=== PATIENT | female | born 1975 | race Caucasian/White ===

== ENCOUNTER 2016-12-14 12:54 | Emergency (ER) | payer SELFPAY ==
--- NOTE | 2016-12-14 13:00 | ER Document Report ---
ED Medical Screen (RME) - General Stated Complaint: SINUS PAIN,COUGH,CONGESTION Time seen by provider: 12:58 Mode of Arrival: Ambulatory Information source: Patient Notes: Cough congestion runny nose for 3 months. She states she is coughing up the nasty stuff sometimes pink. Last menstrual period 11/23/2016. I have greeted and performed a rapid initial assessment of this patient. A comprehensive ED assessment and evaluation of the patient, analysis of test results and completion of medical decision making process will be conducted by an additional ED providers. TRAVEL OUTSIDE OF THE [place] IN LAST 30 DAYS: No - Related Data Allergies/Adverse Reactions: No Known Allergies Allergy (Verified 12/14/16 12:57) Past Medical History Psychiatric Medical History: Reports: Hx Attention Deficit Hyperactivity Disorder, Hx Bipolar Disorder Past Surgical History: Reports: Hx Tonsillectomy - Immunizations Immunizations up to date: Yes Hx Diphtheria, Pertussis, Tetanus Vaccination: Yes
--- NOTE | 2016-12-14 14:03 | ER Document Report ---
ED Respiratory Problem - General Chief Complaint: Sinus Pain Stated Complaint: SINUS PAIN,COUGH,CONGESTION Mode of Arrival: Ambulatory Information source: Patient Notes: 41 y/o F presents to ED c/o persistent cough over the last 3 weeks. Reports onset of cough and congestion approximately 3 weeks ago. States initially had chills which have resolved but cough has persisted. States cough is productive with greenish yellow sputum and seems to be worse at night. Reports associated substernal pain and sob with coughing bouts. Denies n/v, hemoptysis, chest pain or sob without cough. TRAVEL OUTSIDE OF THE [place] IN LAST 30 DAYS: No - HPI Patient complains to provider of: Cough Duration: Worse/persistent Initiating Event: URI Quality of pain: Achy Severity: Mild Pain Level: 1 Context: Smoker Short of Breath: Mild Chest pain/discomfort: Center Cough: Productive Sputum amount: Scant Sputum color: Green Similar symptoms previously: Yes Recently seen / treated by doctor: No - Related Data Allergies/Adverse Reactions: No Known Allergies Allergy (Verified 12/14/16 12:57) Past Medical History - General Information source: Patient - Social History Smoking Status: Current Every Day Smoker Cigarette use (# per day): Yes - 1/2 pack per day Chew tobacco use (# tins/day): No Frequency of alcohol use: daily Drug Abuse: None Lives with: Family Family History: Reviewed & Not Pertinent Patient has suicidal ideation: No Patient has homicidal ideation: No Renal/ Medical History: Denies: Hx Peritoneal Dialysis Psychiatric Medical History: Reports: Hx Attention Deficit Hyperactivity Disorder, Hx Bipolar Disorder Past Surgical History: Reports: Hx Tonsillectomy - Immunizations Immunizations up to date: Yes Hx Diphtheria, Pertussis, Tetanus Vaccination: Yes Review of Systems - Review of Systems Constitutional: See HPI EENT: See HPI Cardiovascular: No symptoms reported Respiratory: See HPI Gastrointestinal: No symptoms reported Genitourinary: No symptoms reported Female Genitourinary: No symptoms reported Musculoskeletal: No symptoms reported Skin: No symptoms reported Hematologic/Lymphatic: No symptoms reported Neurological/Psychological: No symptoms reported -: Yes All other systems reviewed and negative Physical Exam - Vital signs Vitals: Pulse Resp BP Pulse Ox 87 20 119/82 96 12/14/16 12:58 12/14/16 12:58 12/14/16 12:58 12/14/16 12:58 Interpretation: Normal - General General appearance: Appears well, Alert - HEENT Head: Normocephalic, Atraumatic Eyes: Normal Pupils: PERRL - Respiratory Respiratory status: No respiratory distress Chest status: Nontender, Pain with cough. No: Prolonged expirations Breath sounds: Normal - CTAB, Productive cough Chest palpation: Normal - Cardiovascular Rhythm: Regular Heart sounds: Normal auscultation Murmur: No Pulses: Normal: Radial Normal capillary refill: Yes - Abdominal Inspection: Normal Distension: No distension Bowel sounds: Normal Tenderness: Nontender Organomegaly: No organomegaly - Back Back: Normal, Nontender - Extremities General upper extremity: Normal inspection, Nontender, Normal color, Normal ROM , Normal strength, Normal temperature. No: Tender, Edema General lower extremity: Normal inspection, Nontender, Normal color, Normal ROM , Normal strength, Normal temperature, Normal weight bearing. No: Tender, Edema , Grace's sign - Neurological Neuro grossly intact: Yes Cognition: Normal Orientation: AAOx4 [place] Coma Scale Eye Opening: Spontaneous [place]ky Coma Scale Verbal: Oriented [place] Coma Scale Motor: Obeys Commands Nikky Coma Scale Total: 15 Speech: Normal Motor strength normal: LUE, RUE, LLE, RLE Sensory: Normal - Psychological Associated symptoms: Normal affect, Normal mood - Skin Skin Temperature: Warm Skin Moisture: Dry Skin Color: Normal Course - Re-evaluation Re-evalutation: 12/14/16 14:10 Pt hemodynamically stable, in no distress, afebrile. Chest xray unremarkable. No suggestion of emergent infectious, pulmonary, or cardiovascular etiology at this time. Will treat for likely uncomplicated bronchitis at this time. Pt appears stable for discharge and agrees with home care, follow-up with pcp, and ED return precautions. - Vital Signs Vital signs: Temp Pulse Resp BP Pulse Ox 97.8 F 91 20 110/67 96 12/14/16 14:43 12/14/16 14:43 12/14/16 12:58 12/14/16 14:43 12/14/16 14:43 - Diagnostic Test Radiology reviewed: Image reviewed, Reports reviewed Discharge - Discharge Clinical Impression: Bronchitis Condition: Stable Disposition: HOME, SELF-CARE Additional Instructions: BRONCHITIS: You have acute bronchitis. This disease is an infection or inflammation of the air passageways in your lungs. Symptoms usually include cough, low grade fever, shortness of breath, and wheezing. The cough usually persists for a couple of weeks. Most cases of bronchitis get better without antibiotics. We prescribe antibiotics when we believe bacteria are damaging your airways, or if there's high risk the bronchitis will worsen into pneumonia. Increase your fluid intake. A cool mist humidifier may make your lungs more comfortable. An expectorant (cough medicine that loosens phlegm) can help. If you smoke, STOP!!! Recovery from bronchitis can be somewhat slow, but you should see improvement within a day or two. Repeated episodes of bronchitis may result in lung damage -- for example, chronic bronchitis, recurrent pneumonias, or emphysema. Call the doctor if you develop increasing fever, shortness of breath, chest pain, bloody sputum, or otherwise worsen. If you have not improved at all after several days, contact the physician. DECONGESTANT MEDICATION: A decongestant medicine has been prescribed. Often this medicine is combined in the same tablet with an antihistamine or expectorant. This type of medicine is helpful in treating a bad cold or sinus condition, as well as in treatment of the nasal congestion of hay fever. It is not of much benefit for lung infections. Decongestant medicines are related to stimulants. They can cause an increase in blood pressure and heart rate. Persons with heart disease and high blood pressure should not take decongestants without discussing this with the physician. If you develop palpitations, chest pain, headache, or tremors, stop the medicine and consult your physician. COUGH-SUPPRESSANT & EXPECTORANT MEDICATION: You are to use a cough medication as needed for relief of symptoms. This medicine is a combination of an expectorant (to make the mucous thinner and more easily "coughed up") and a cough suppressant (to reduce the frequency of coughing). The cough-suppressant medicine is related to narcotics. You may experience mild nausea and sleepiness. Some patients who are very sensitive to narcotics may have stomach pain from this medicine. Taking the medicine with food reduces these side effects. Do not drive or work with machinery until you know how this medicine affects you. The expectorant should have no side effects. Iodine-containing expectorants (such as organidin) should not be taken by persons with active thyroid disease unless approved by your doctor. Call the doctor if you develop shortness of breath, hives, rash, itching, lightheadedness, or severe nausea and vomiting. INHALED BRONCHODILATORS: You have received a treatment of and/or prescription for an inhaled bronchodilator -- a medication which stimulates the airways in the lung to dilate. This improves the flow of air in asthma, bronchitis, and emphysema. These medicines have some similarity to adrenaline, and can cause similar side effects: shakiness, racing heart, and a sense of nervousness. These side effects decrease with time. Contact your doctor if these side effects are severe. Do not over-use the medicine. Too-frequent use of the inhaler may make it ineffective. Call your doctor if the inhaler is not controlling your symptoms at the prescribed doses. STEROID MEDICATION: You have been given an injection of or oral medicine of the cortisone/ steroid class. This medication is used to control inflammation or allergy. [place] t is usually only given for a short period of time, until the acute process subsides. There are usually no side effects from short-term use of cortisone-like medications. Some persons feel an increased sense of well-being and are not sleepy at bedtime. Long-term use of cortisone medications is best avoided, unless required for a severe condition. If your condition does not remit, or relapses after the course of corticosteroid medication, you should consult your physician. ANTIBIOTIC THERAPY: You have been given an antibiotic prescription. It's important that you take all the medication, unless instructed otherwise by your physician. Failure to complete the entire course can result in relapse of your condition. Common side effects of antibiotics include nausea, intestinal cramping, or diarrhea. Women may develop vaginal yeast infections, and babies can get yeast (thrush) in the mouth following the use of antibiotics. Contact your physician if you develop significant side effects from this medication. Allergy to this antibiotic can result in hives, wheezing, faintness, or itching. If symptoms of allergy occur, stop the medication and call your doctor. AZITHROMYCIN: Azithromycin (Zithromax) is a broad spectrum antibiotic in the same class as erythromycin. It can treat a variety of bacterial infections, but is most frequently used for respiratory infections. Azithromycin is extremely long-lasting. It accumulates in body tissues and continues to kill bacteria for many days. In order to improve absorption, Azithromycin should be taken at least one hour before or two hours after a meal. It does not have the same strong tendency to upset the stomach as erythromycin and is usually very well tolerated. Patients who have had a rash or other true allergic reactions to erythromycin should not take this medication. Call if you develop gastrointestinal distress, severe diarrhea, rash, hives, itching, or shortness of breath. USE OF ACETAMINOPHEN (Tylenol): Acetaminophen may be taken for pain relief or fever control. It's much safer than aspirin, offering a wider range of "safe" dosages. It is safe during . Some brand names are Tylenol, Panadol, Datril, Anacin 3, Tempra, and Liquiprin. Acetaminophen can be repeated every four hours. The following are maximum recommended dosages: >89 pounds or adults 650 mg to 900 mg Acetaminophen can be repeated every four hours. Maximum dose not to exceed 4000 mg a day. SMOKING: If you smoke, you should stop smoking. The tar and chemicals in cigarette smoke are harmful. Smoking has been shown to cause: emphysema chronic bronchitis lung cancer mouth and throat cancer stomach and pancreas cancer premature aging defects In addition, smoking increases ear and lung infections in children of smokers. FOLLOW-UP CARE: Drink plenty of fluids. Follow-up with your primary care provider this week. Return to the Emergency Department for any worsening symptoms or concerns. Prescriptions: Guaifenesin/D-Methorphan Hb [Guaifenesin-Dextromethorph Tab] 1 each PO Q12HP PRN #8 tab.sr.12h PRN Reason: Cough Albuterol Sulfate [Proair HFA Inhalation Aerosol 8.5 gm MDI] 2 puff IH Q4H PRN # 1 mdi PRN Reason: Azithromycin [Zithromax 250 mg Tablet] 250 mg PO ASDIR PRN #6 tablet PRN Reason: Prednisone [Deltasone 10 mg Tablet] 10 mg PO ASDIR PRN #21 tablet PRN Reason: Forms: Smoking Cessation Education
[2016-12-14 14:57] VITALS: BP 110/67
== END 2016-12-14 14:44 | disposition home or self-care (01) ==
LOC: ER 12:54
DX: J40 Bronchitis, not specified as acute or chronic (principal); R05 Cough; R07.89 Other chest pain; R06.02 Shortness of breath; F17.210 Nicotine dependence, cigarettes, uncomplicated
CPT/HCPCS: 71020; 99283

== ENCOUNTER 2017-09-14 10:19 | Emergency (ER) | payer SELFPAY ==
--- NOTE | 2017-09-14 11:08 | ER Document Report ---
ED Skin Rash/Insect Bite/Abscs - General Chief Complaint: Cold Symptoms Stated Complaint: SORE THROAT CONGESTION Time Seen by Provider: 09/14/17 11:02 Mode of Arrival: Ambulatory Notes: 42-year-old female presents to ED for complaint of cough cold congestion sore throat runny nose with blisters in her nose from blowing her nose so much. TRAVEL OUTSIDE OF THE [place] IN LAST 30 DAYS: No - HPI Patient complains to provider of: Other - Cough cold congestion for over a week with blisters to the inside of bilateral nostrils Onset: Last week Onset/Duration: Gradual, Worse Quality of pain: Achy, Burning Severity: Moderate Pain Level: 3 Skin Character: Other - Blisters/ulcers to the inside of both nares, she also has runny nose cough congestion postnasal drip lungs are clear Identify cause: No Exacerbated by: Denies Relieved by: Denies Similar symptoms previously: Yes Recently seen / treated by doctor: Yes - Related Data Allergies/Adverse Reactions: No Known Allergies Allergy (Verified 12/14/16 12:57) Past Medical History - General Information source: Patient - Social History Smoking Status: Current Every Day Smoker Cigarette use (# per day): Yes - Pack per day Chew tobacco use (# tins/day): No Smoking Education Provided: Yes - Less than 2 minutes Frequency of alcohol use: Social - 3 times a week Drug Abuse: None 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 denies: CAD , DM, Malignancy, Thyroid Disfunction Patient has suicidal ideation: No Patient has homicidal ideation: No - Past Medical History Cardiac Medical History: Reports: None Pulmonary Medical History: Reports: Hx Pneumonia EENT Medical History: Reports: None Neurological Medical History: Reports: Hx Migraine Endocrine Medical History: Reports: None Renal/ Medical History: Reports: None Malignancy Medical History: Reports: None GI Medical History: Reports: Hx Irritable Bowel Musculoskeltal Medical History: Reports None Skin Medical History: Reports None Psychiatric Medical History: Reports: Hx Anxiety, Hx Attention Deficit Hyperactivity Disorder, Hx Bipolar Disorder, Hx Depression Traumatic Medical History: Reports: None Past Surgical History: Reports: Hx Adenoidectomy, Hx Myringotomy, Hx Oral Surgery - [place] teeth, Hx Tonsillectomy - Immunizations Immunizations up to date: Yes Hx Diphtheria, Pertussis, Tetanus Vaccination: Yes Review of Systems - Review of Systems Constitutional: Chills, Fever, Recent illness EENT: Nose congestion, Nose discharge, Sinus discharge, Throat pain Cardiovascular: No symptoms reported Respiratory: Cough. denies: Wheezing Gastrointestinal: No symptoms reported Genitourinary: No symptoms reported Female Genitourinary: No symptoms reported Musculoskeletal: No symptoms reported Skin: No symptoms reported Hematologic/Lymphatic: No symptoms reported Neurological/Psychological: No symptoms reported -: Yes All other systems reviewed and negative Physical Exam - Vital signs Vitals: Temp Pulse Resp BP Pulse Ox 98.4 F 71 16 134/87 H 99 09/14/17 10:28 09/14/17 10:28 09/14/17 10:28 09/14/17 10:28 09/14/17 10:28 Interpretation: Normal - General General appearance: Appears well, Alert - HEENT Head: Normocephalic, Atraumatic Eyes: Normal Pupils: PERRL Ears: Normal External canal: Normal Tympanic membrane: Normal Sinus: Normal Nasal: Purulent discharge, Swelling, Other - Draining ulcers to the bilateral nostrils from blowing her nose so much she states Mouth/Lips: Normal Mucous membranes: Normal Pharynx: Post nasal drainage. No: Erythema, Exudate, Peritonsillar abscess, Retropharyngeal abscess, Tonsillar hypertrophy, Potential airway comprom. Neck: Anterior cervical chain - Respiratory Respiratory status: No respiratory distress Chest status: Nontender Breath sounds: Nonproductive cough. No: Productive cough, Rales, Rhonchi, Stridor, Wheezing Chest palpation: Normal - Cardiovascular Rhythm: Regular Heart sounds: Normal auscultation Murmur: No - Abdominal Inspection: Normal Distension: No distension Bowel sounds: Normal Tenderness: Nontender Organomegaly: No organomegaly - Back Back: Normal, Nontender - Extremities General upper extremity: Normal inspection, Nontender, Normal color, Normal ROM , Normal temperature General lower extremity: Normal inspection, Nontender, Normal color, Normal ROM , Normal temperature, Normal weight bearing. No: Grace's sign - Neurological Neuro grossly intact: Yes Cognition: Normal Orientation: AAOx4 [place] Coma Scale Eye Opening: Spontaneous Nikky Coma Scale Verbal: Oriented [place] Coma Scale Motor: Obeys Commands Nikky Coma Scale Total: 15 Speech: Normal Motor strength normal: LUE, RUE, LLE, RLE Sensory: Normal - Psychological Associated symptoms: Normal affect, Normal mood - Skin Skin Temperature: Warm Skin Moisture: Dry Skin Color: Normal Course - Re-evaluation Re-evalutation: 09/14/17 11:08 Assessment consistent with an upper respiratory infection with blisters in her nose from blowing her nose so much. Will treat with Claritin and Sudafed Mucinex and ibuprofen and Bactroban to her nose. Patient will be discharged home to follow-up with her primary doctor. - Vital Signs Vital signs: Temp Pulse Resp BP Pulse Ox 98.4 F 71 16 134/87 H 99 09/14/17 10:28 09/14/17 10:28 09/14/17 10:28 09/14/17 10:28 09/14/17 10:28 Discharge - Discharge Clinical Impression: Sores in her nose Upper respiratory infection Qualifiers: URI type: unspecified URI Qualified Code(s): J06.9 - Acute upper respiratory infection, unspecified Condition: Stable Disposition: HOME, SELF-CARE Instructions: Family Physicians / Practices Additional Instructions: UPPER RESPIRATORY ILLNESS: You have a viral infection of the respiratory passages -- a "cold." This common infection causes nasal congestion, drainage, and often sore throat and cough. It is highly contagious. The disease usually lasts about 10 to 14 days. There is no "cure" for the viral infection -- it must run its course. If there is a complication, such as bacterial infection in the nose, sinuses, middle ear, or bronchial tubes, antibiotics may be required. The antibiotics won't affect the virus. Drink plenty of fluids. A humidifier may help. An expectorant medication or decongestant may make you more comfortable. Use acetaminophen or ibuprofen for fever or aches. See the doctor if fever persists over two days, if there is any significant worsening of your symptoms, or if you simply fail to improve as expected. Bactroban Ointment Bactroban is very effective against the germs that cause infection within the skin. It's useful for impetigo and other superficial infections. Deeper infections require antibiotics by mouth or by shot. Apply the medicine three times a day for one week, or longer if your doctor has advised it. Stop the medicine and call your doctor if you develop large blisters, severe itching, increasing pain, swelling, fever, or spreading redness. DECONGESTANT MEDICATION: A decongestant medicine has been prescribed. Often this medicine is combined in the same tablet with an antihistamine or expectorant. This type of medicine is helpful in treating a bad cold or sinus condition, as well as in treatment of the nasal congestion of hay fever. It is not of much benefit for lung infections. Decongestant medicines are related to stimulants. They can cause an increase in blood pressure and heart rate. Persons with heart disease and high blood pressure should not take decongestants without discussing this with the physician. If you develop palpitations, chest pain, headache, or tremors, stop the medicine and consult your physician. COUGH-SUPPRESSANT & EXPECTORANT MEDICATION: You are to use a cough medication as needed for relief of symptoms. This medicine is a combination of an expectorant (to make the mucous thinner and more easily "coughed up") and a cough suppressant (to reduce the frequency of coughing). The cough-suppressant medicine is related to narcotics. You may experience mild nausea and sleepiness. Some patients who are very sensitive to narcotics may have stomach pain from this medicine. Taking the medicine with food reduces these side effects. Do not drive or work with machinery until you know how this medicine affects you. The expectorant should have no side effects. Iodine-containing expectorants (such as organidin) should not be taken by persons with active thyroid disease unless approved by your doctor. Call the doctor if you develop shortness of breath, hives, rash, itching, lightheadedness, or severe nausea and vomiting. USE OF ACETAMINOPHEN (Tylenol): Acetaminophen may be taken for pain relief or fever control. It's much safer than aspirin, offering a wider range of "safe" dosages. It is safe during . Some brand names are Tylenol, Panadol, Datril, Anacin 3, Tempra, and Liquiprin. Acetaminophen can be repeated every four hours. The following are maximum recommended dosages: >89 pounds or adults 650 mg to 900 mg Acetaminophen can be repeated every four hours. Maximum dose not to exceed 4000 mg a day. SMOKING: If you smoke, you should stop smoking. The tar and chemicals in cigarette smoke are harmful. Smoking has been shown to cause: emphysema chronic bronchitis lung cancer mouth and throat cancer stomach and pancreas cancer premature aging defects In addition, smoking increases ear and lung infections in children of smokers. FOLLOW-UP CARE: If you have been referred to a physician for follow-up care, call the physician s office for an appointment as you were instructed or within the next two days. If you experience worsening or a significant change in your symptoms, notify the physician immediately or return to the Emergency Department at any time for re-evaluation. Forms: Return to Work
[2017-09-14] MEDS ORDERED: LORATADINE 10 MG TABLET PO ONE (11:20)
[2017-09-14] MEDS ORDERED: GUAIFENESIN 600 MG TABLET.SA PO ONE (11:20)
[2017-09-14] MEDS ORDERED: MUPIROCIN 2% OINTMENT 22 GM TP ONE (11:20)
[2017-09-14] MEDS ORDERED: PSEUDOEPHEDRINE HCL 30 MG TABLET PO ONE (11:20)
[2017-09-14] MEDS ORDERED: IBUPROFEN 600 MG TABLET PO ONE (11:20)
[2017-09-14 11:56] VITALS: BP 123/91
== END 2017-09-14 11:50 | disposition home or self-care (01) ==
LOC: ER 10:19
DX: J06.9 Acute upper respiratory infection, unspecified (principal); L98.9 Disorder of the skin and subcutaneous tissue, unspecified; J02.9 Acute pharyngitis, unspecified; R09.81 Nasal congestion; R05 Cough; R09.89 Other specified symptoms and signs involving the circulatory and respiratory systems; F17.210 Nicotine dependence, cigarettes, uncomplicated
CPT/HCPCS: 99283; J3490

== ENCOUNTER 2017-09-15 22:52 | Emergency (ER) | payer SELFPAY ==
[2017-09-15 23:11] VITALS: BP 134/119
[2017-09-15] MEDS ORDERED: DEXAMETHASONE SOD PHOS INJ 10 MG/1 ML VIAL IM ONE (23:35)
--- NOTE | 2017-09-15 23:41 | ER Document Report ---
HPI - HPI Pain Level: 5 Notes: Patient is a 42-year-old female who presents to the ED complaining of nasal congestion/discharge, sinus pain and pressure, sinus Box's, postnasal drip, bilateral ear pain 4 weeks. Patient states that she has been using over-the- counter meds with no relief and was evaluated yesterday was given the same medications that she had been using [id number] that have not been working. Patient states that her congestion does continue to get worse. Patient states that she has had an intermittent sore throat from postnasal drip. Patient has also had a dry semi-productive cough 2 weeks. Patient does admit to smoking but denies IV drug use. Patient states that she is still able to eat and drink, but does have a decreased appetite. She still urinating normally and having normal bowel movements. Denies any fever, neck pain, chest pain, palpitations, syncope, shortness of breath, wheeze, dyspnea, abdominal pain, nausea/vomiting/diarrhea, dysuria, hematuria, or rash. - ROS Notes: REVIEW OF SYSTEMS: CONSTITUTIONAL : see hpi. EENT: see hpi. CARDIOVASCULAR: Denies chest pain. Denies palpitations or racing or irregular heart beat. Denies ankle edema. RESPIRATORY: see hpi. Denies shortness of breath, difficulty breathing, or wheezing. GASTROINTESTINAL: Denies abdominal pain or distention. Denies nausea, vomiting , or diarrhea. GENITOURINARY: Denies difficulty urinating, painful urination, burning, frequency, blood in urine, or discharge. MUSCULOSKELETAL: Denies back or neck pain or stiffness. Denies joint pain or swelling. SKIN: Denies rash, lesions or sores. NEUROLOGICAL: Denies confusion or altered mental status. Denies passing out or loss of consciousness. Denies dizziness or lightheadedness. Denies headache. Denies weakness or paralysis or loss of use of either side. Denies problems with gait or speech. Denies sensory loss, numbness, or tingling. ALL OTHER SYSTEMS REVIEWED AND NEGATIVE. Dictation was performed using [employer] voice recognition software - EENT EENT: REPORTS: Sore Throat - x1 day - REPRODUCTIVE Reproductive: DENIES: : Past Medical History - Social History Smoking Status: Current Every Day Smoker Family History: Arthritis, COPD, CVA, Hyperlipidemia, Hypertension. denies: CAD , DM, Malignancy, Thyroid Disfunction Patient has suicidal ideation: No Patient has homicidal ideation: No Pulmonary Medical History: Reports: Hx Pneumonia Neurological Medical History: Reports: Hx Migraine Renal/ Medical History: Denies: Hx Peritoneal Dialysis GI Medical History: Reports: Hx Irritable Bowel Psychiatric Medical History: Reports: Hx Anxiety, Hx Attention Deficit Hyperactivity Disorder, Hx Bipolar Disorder, Hx Depression Past Surgical History: Reports: Hx Adenoidectomy, Hx Myringotomy, Hx Oral Surgery - [place] teeth, Hx Tonsillectomy - Immunizations Immunizations up to date: Yes Hx Diphtheria, Pertussis, Tetanus Vaccination: Yes Vertical Provider Document - CONSTITUTIONAL Agree With Documented VS: Yes Notes: PHYSICAL EXAMINATION: GENERAL: Well-appearing, well-nourished and in no acute distress. A&ox4 HEAD: Atraumatic, normocephalic. EYES: Pupils equal round and reactive to light, extraocular movements intact, sclera anicteric, conjunctiva are normal. ENT: EAC clear b/l. TM's intact b/l without erythema, fluid, or perforation. Nares erythemic, mildly inflamed and with yellow discharge. oropharynx mild erythema without exudates. + PND noted. 2+ tonsilar hypertrophy without exudate. No palatine shift. Uvula midline. No tongue protrusion. Moist mucous membranes. No sinus tenderness. No hoarseness/drooling. + sinus maxillary sinus tenderness and + illumination test. NECK: Normal range of motion, supple without lymphadenopathy. No rigidity/ meningismus. LUNGS: scant expiratory wheezes b/l. No crackles, retraction, or distress. HEART: Regular rate and rhythm without murmurs, rubs, gallops. ABDOMEN: Soft, nontender, nondistended abdomen. No guarding, no rebound. No masses appreciated. Normal bowel sounds present. No CVA tenderness bilaterally. No hepatosplenomegaly. NEUROLOGICAL: Normal speech, normal gait. Normal sensory, motor exams PSYCH: Normal mood, normal affect. SKIN: Warm, Dry, normal turgor, no rashes or lesions noted. - INFECTION CONTROL TRAVEL OUTSIDE OF THE [place] IN LAST 30 DAYS: No - RESPIRATORY O2 Sat by Pulse Oximetry: 96 Course - Re-evaluation Re-evalutation: 09/15/17 23:40 Patient is an afebrile, well-hydrated, 42-year-old female who presents the ED with acute sinusitis and URI. Vitals are stable. PE is otherwise unremarkable. Patient has been having ongoing symptoms for reportedly 4 weeks that have not been improving despite conservative measures. I will send her home with a prescription for Augmentin to take as directed. No other imaging or lab testing warranted at this time. Decadron given IM today as well. Low suspicion for any meningitis, sepsis, peritonsillar/pharyngeal abscess, respiratory compromise, Ronal's, or other emergent systemic condition at this time. Patient is aware this condition can change from initial presentation and she needs to monitor symptoms closely. Conservative measures otherwise for symptoms. Recheck with your PCM in 3-5 days. Return to the ED with any worsening/concerning symptoms otherwise as reviewed in discharge. Patient is in agreement. - Vital Signs Vital signs: Temp Pulse Resp BP Pulse Ox 98.9 F 109 H 16 134/119 H 96 09/15/17 23:10 09/15/17 23:10 09/15/17 23:10 09/15/17 23:10 09/15/17 23:10 Discharge - Discharge Clinical Impression: Acute URI Acute sinusitis Qualifiers: Sinusitis location: maxillary Recurrence: non-recurrent Qualified Code(s): J01.00 - Acute maxillary sinusitis, unspecified Condition: Stable Disposition: HOME, SELF-CARE Instructions: Sinusitis ([facility]), Upper Respiratory Illness ([facility]), Augmentin ([facility]) Additional Instructions: Maintain adequate fluid intake Take meds as directed tylenol/ibuprofen as needed over the counter cold medication as needed for symptoms Humidified air may help F/u: with your PCM in 3-5 days for a recheck Return to the ED with any fever, worsening pain, chest pain, palpitations, syncope, worsening BOX, neck pain/stiffness, shortness of breath, wheezing, drooling, trouble swallowing/breathing, abdominal pain, n/v/d, rash, or worsening/concerning symptoms otherwise. Prescriptions: Amox Tr/Potassium Clavulanate [Augmentin 875-125 Tablet] 1 tab PO BID #20 tablet Forms: Elevated Blood Pressure, Smoking Cessation Education Referrals: [facility] [Provider Group] - Follow up as needed [facility] [Provider Group] - Follow up as needed
== END 2017-09-16 00:15 | disposition home or self-care (01) ==
LOC: ER 22:52
DX: J06.9 Acute upper respiratory infection, unspecified (principal); J01.00 Acute maxillary sinusitis, unspecified; H92.03 Otalgia, bilateral; F17.200 Nicotine dependence, unspecified, uncomplicated
CPT/HCPCS: 99282; 96372; J1100

== ENCOUNTER 2018-04-24 10:05 | Emergency (ER) | payer SELFPAY ==
[2018-04-24 10:11] VITALS: BP 113/73
--- NOTE | 2018-04-24 10:19 | ER Document Report ---
HPI - HPI Patient complains to provider of: Cough and congestion Onset: Other - April 22 Onset/Duration: Sudden Pain Level: 5 Context: 42-year-old smoker female complaining of cough and congestion. Chills and sweats. Had a hard time breathing this morning. Does not have any bronchodilators. Associated Symptoms: None Exacerbated by: Other - Cough Relieved by: Denies - ROS ROS below otherwise negative: Yes Systems Reviewed and Negative: Yes All other systems reviewed and negative - REPRODUCTIVE Reproductive: DENIES: : Past Medical History - General Information source: Patient - Social History Smoking Status: Current Every Day Smoker Frequency of alcohol use: None Drug Abuse: None Lives with: Spouse/Significant other Family History: Arthritis, COPD, CVA, Hyperlipidemia, Hypertension Pulmonary Medical History: Reports: Hx Bronchitis, Hx Pneumonia Neurological Medical History: Reports: Hx Migraine Renal/ Medical History: Denies: Hx Peritoneal Dialysis GI Medical History: Reports: Hx Irritable Bowel Psychiatric Medical History: Reports: Hx Anxiety, Hx Attention Deficit Hyperactivity Disorder, Hx Bipolar Disorder, Hx Depression Past Surgical History: Reports: Hx Adenoidectomy, Hx Myringotomy, Hx Oral Surgery - [place] teeth, Hx Tonsillectomy - Immunizations Immunizations up to date: Yes Hx Diphtheria, Pertussis, Tetanus Vaccination: Yes Vertical Provider Document - CONSTITUTIONAL Agree With Documented VS: Yes Exam Limitations: No Limitations General Appearance: No Apparent Distress - INFECTION CONTROL TRAVEL OUTSIDE OF THE [place] IN LAST 30 DAYS: No - HEENT HEENT: Pharyngeal Erythema. negative: Conjuctival Injection, Tympanic Membrane Red - NECK Neck: Supple. negative: Lymphadenopathy-Left, Lymphadenopathy-Right - RESPIRATORY Respiratory: Rhonchi - Coarse bilateral, Wheezing - Coarse bilateral expiratory - CARDIOVASCULAR Cardiovascular: Regular Rate, Regular Rhythm - NEURO Level of Consciousness: Awake - DERM Integumentary: No Rash Course - Re-evaluation Re-evalutation: 04/24/18 11:00 Chest x-ray is negative per radiologist - Vital Signs Vital signs: Temp Pulse Resp BP Pulse Ox 97.8 F 95 20 113/73 04/24/18 10:09 04/24/18 10:09 04/24/18 10:04/24/18 10:09 Discharge - Discharge Clinical Impression: Bronchitis Condition: Good Disposition: HOME, SELF-CARE Instructions: Bronchitis ([facility]), Bronchodilators ([facility]), Stop Smoking ([facility]), Steroid Medication Additional Instructions: Plenty of fluids Stop smoking Use the inhaler Steroids for 4 more days If you are still sick in a week recheck where your symptoms get worse recheck The chest x-ray is negative for pneumonia today Prescriptions: Albuterol Sulfate [Proair HFA Inhalation Aerosol 8.5 gm MDI] 2 puff IH Q3HP PRN #1 [email or web address] PRN Reason: Prednisone [Deltasone 20 mg Tablet] 40 mg PO DAILY #8 tablet
[2018-04-24] MEDS ORDERED: IPRATROPIUM/ALBUTEROL 0.5-2.5 MG/3 ML AMPUL NEB ONE (10:21)
[2018-04-24] MEDS ORDERED: ALBUTEROL SULFATE 0.083% NEB 2.5 MG/3 ML AMPUL NEB ONE (10:21)
--- NOTE | 2018-04-24 10:58 | RADIOLOGY REPORT (SQ) ---
EXAM DESCRIPTION: CHEST 2 VIEWS COMPLETED DATE/TIME: 04/24/2018 10:34 am REASON FOR STUDY: Cough COMPARISON: Chest films 12/14/2016, 02/27/2015, 10/17/2009 EXAM PARAMETERS: NUMBER OF VIEWS: two views TECHNIQUE: Digital Frontal and Lateral radiographic views of the chest acquired. RADIATION DOSE: NA LIMITATIONS: none FINDINGS: LUNGS AND PLEURA: No opacities, masses or pneumothorax. No pleural effusion. MEDIASTINUM AND HILAR STRUCTURES: No masses or contour abnormalities. HEART AND VASCULAR STRUCTURES: Heart normal size. No evidence for failure. BONES: No acute findings. HARDWARE: None in the chest. OTHER: No other significant finding. IMPRESSION: NO ACUTE RADIOGRAPHIC FINDING IN THE CHEST. TECHNICAL DOCUMENTATION: JOB ID: [id number] [employer]- All Rights Reserved Reading location - IP/workstation name: [email or web address]
[2018-04-24] MEDS ORDERED: PREDNISONE 20 MG TABLET PO ONE (11:00)
== END 2018-04-24 11:23 | disposition home or self-care (01) ==
LOC: ER 10:05
DX: J40 Bronchitis, not specified as acute or chronic (principal); F17.200 Nicotine dependence, unspecified, uncomplicated
CPT/HCPCS: 94640 ×2; 99283; 71046; J7512; J7620

== ENCOUNTER 2019-05-06 06:49 | Emergency (ER) | payer SELFPAY ==
[2019-05-06 07:05] VITALS: BP 146/98
--- NOTE | 2019-05-06 15:02 | ER Document Report ---
Entered by JAYLEEN KUMAR SCRIBE 05/06/19 0830 Acting as scribe for:CATALINA BEY DO ED General - General Chief Complaint: Insect Bite Stated Complaint: RASH Time Seen by Provider: 05/06/19 08:11 Notes: Patient is a 43-year-old female presenting to the emergency department complaining of bug bites. Patient states that this is been going on for about 2 years. Patient states that she does have animals, she she has a rash from the bites. Patient states that she has taken permethrin before to help with the bites and it did help temporarily. She has seen field reporter for this in the past. States she was told to use lotion for dry skin. TRAVEL OUTSIDE OF THE [place] IN LAST 30 DAYS: No - Related Data Allergies/Adverse Reactions: No Known Allergies Allergy (Verified 04/24/18 10:06) Past Medical History - General Information source: Patient - Social History Smoking Status: Current Every Day Smoker Cigarette use (# per day): Yes Chew tobacco use (# tins/day): No Frequency of alcohol use: Occasional Drug Abuse: None Family History: Arthritis, COPD, CVA, Hyperlipidemia, Hypertension Pulmonary Medical History: Reports: Hx Bronchitis, Hx Pneumonia Neurological Medical History: Reports: Hx Migraine GI Medical History: Reports: Hx Irritable Bowel Psychiatric Medical History: Reports: Hx Anxiety, Hx Attention Deficit Hyperactivity Disorder, Hx Bipolar Disorder, Hx Depression Past Surgical History: Reports: Hx Adenoidectomy, Hx Myringotomy, Hx Oral Surgery - [place] teeth, Hx Tonsillectomy - Immunizations Immunizations up to date: Yes Hx Diphtheria, Pertussis, Tetanus Vaccination: Yes Review of Systems - Review of Systems Constitutional: No symptoms reported EENT: No symptoms reported Cardiovascular: No symptoms reported Respiratory: No symptoms reported Gastrointestinal: No symptoms reported Genitourinary: No symptoms reported Female Genitourinary: No symptoms reported Musculoskeletal: No symptoms reported Skin: See HPI, Rash - Bug bites Hematologic/Lymphatic: No symptoms reported Neurological/Psychological: No symptoms reported -: Yes All other systems reviewed and negative Physical Exam - Vital signs Vitals: Temp Pulse Resp BP Pulse Ox 97.9 F 93 18 146/98 H 100 05/06/19 07:03 05/06/19 07:03 05/06/19 07:03 05/06/19 07:03 05/06/19 07:03 - Notes Notes: PHYSICAL EXAM GENERAL: Alert, interacts well. No acute distress. Excoriations present across the upper back, shoulder, arms, abdomen, and minimal on the legs. HEAD: Normocephalic, atraumatic. EYES: Pupils equal, round, and reactive to light. Extraocular movements intact. ENT: Oral mucosa moist, tongue midline. NECK: Full range of motion. Supple. Trachea midline. LUNGS: No respiratory distress EXTREMITIES: Moves all 4 extremities spontaneously. No edema, No cyanosis. NEUROLOGICAL: Alert and oriented x3. Normal speech. PSYCH: Normal affect, normal mood. SKIN: Warm, dry, no signs of secondary bacterial infection around the excoriations. No blisters or vesicles. Course - Re-evaluation Re-evalutation: 05/06/19 08:37 Multiple excoriations possibly consistent with bug bites and there is no sign of secondary bacterial infection. I would also consider the possibility of delusional parasitosis as no one else in her home sees these bugs and no one else in her home has any bug bites. Patient however has had success approximately a year ago with treating this with permethrin. Prior to pursuing the possible diagnosis of delusional parasitosis I will have the patient do another trial of permethrin and treat her house for the bugs that she states she is seeing. Discharged home. There is no evidence of secondary bacterial infection. - Vital Signs Vital signs: Temp Pulse Resp BP Pulse Ox 97.9 F 93 18 146/98 H 100 05/06/19 07:03 05/06/19 07:03 05/06/19 07:03 05/06/19 07:03 05/06/19 07:03 Discharge - Discharge Clinical Impression: Multiple excoriations Bug bites Qualifiers: Encounter type: initial encounter Qualified Code(s): W57.XXXA - Bitten or stung by nonvenomous insect and other nonvenomous arthropods, initial encounter Condition: Stable Disposition: HOME, SELF-CARE Additional Instructions: Scabies Your exam suggests the presence of scabies, which are microscopic parasites of the skin. These mites tro through the skin, causing severe itching. The mite can be spread to other persons by skin contact. All clothing, towels, and bedding should be washed in very hot water, set aside for a week, then washed again. You should apply scabies-killing lotion from the neck down, then wash it off after 12 hours (permethrin). You may need medication for itching, as the itch persists for many days after the mites have been killed. All family members and close personal contacts should be examined. Repeat treatment may be necessary if the infestation is not eliminated with a single treatment. Call the doctor if you develop increasing swelling and redness, red str eaks, tender lumps, fever, or drainage from a skin sore. Prescriptions: Permethrin [Nix 1% Lotion 59 ml] 1 applic TP ONCE PRN #1 bottle PRN Reason: I personally performed the services described in the documentation, reviewed and edited the documentation which was dictated to the scribe in my presence, and it accurately records my words and actions.
== END 2019-05-06 10:21 | disposition home or self-care (01) ==
LOC: ER 06:49
DX: T14.8XXA Other injury of unspecified body region, initial encounter (principal); W57.XXXA Bitten or stung by nonvenomous insect and other nonvenomous arthropods, initial encounter; S20.419A Abrasion of unspecified back wall of thorax, initial encounter; S40.219A Abrasion of unspecified shoulder, initial encounter; S40.812A Abrasion of left upper arm, initial encounter; S40.811A Abrasion of right upper arm, initial encounter; S30.811A Abrasion of abdominal wall, initial encounter; S80.812A Abrasion, left lower leg, initial encounter; S80.811A Abrasion, right lower leg, initial encounter; X58.XXXA Exposure to other specified factors, initial encounter; F17.210 Nicotine dependence, cigarettes, uncomplicated
CPT/HCPCS: 99281

== ENCOUNTER 2019-05-10 15:51 | Emergency (ER) | payer SELFPAY ==
[2019-05-10] MEDS ORDERED: CIPROFLOXACIN HCL/DEXAMETH OTIC DROP 7.5 ML AD ONE (16:32)
[2019-05-10] MEDS ORDERED: LIDOCAINE 2% VISCOUS SOLN 20 ML UDCUP PO ONE (16:32)
--- NOTE | 2019-05-10 16:39 | ER Document Report ---
ED ENT - General Chief Complaint: Ear Pain Stated Complaint: RIGHT EAR PAIN Time Seen by Provider: 05/10/19 16:27 Primary Care Provider: KRISTEN ELLIS DO [ASSOCIATE] - Follow up as needed Mode of Arrival: Ambulatory Information source: Patient Notes: 43-year-old female presented to ED for complaint of right ear pain that started yesterday. Patient is alert oriented respirations regular and unlabored speaking in full sentences walking with a even steady gait. TRAVEL OUTSIDE OF THE [place] IN LAST 30 DAYS: No - HPI Patient complains to provider of: Ear problem Onset: Yesterday - Right ear Onset/Duration: Gradual, Worse Quality of pain: Sharp Severity: Severe Pain Level: 5 Context: Recent Illness Location of pain: Ears Associated symptoms: Ear pain, Ear drainage Similar symptoms previously: No Recently seen / treated by doctor: No - Related Data Allergies/Adverse Reactions: No Known Allergies Allergy (Verified 05/10/19 15:51) Past Medical History - General Information source: Patient - Social History Smoking Status: Current Every Day Smoker Cigarette use (# per day): Yes - Pack per day Chew tobacco use (# tins/day): No Smoking Education Provided: Yes - 4 minutes Frequency of alcohol use: Occasional Drug Abuse: None Lives with: Family Family History: Arthritis, COPD, CVA, Hyperlipidemia, Hypertension Patient has suicidal ideation: No Patient has homicidal ideation: No - Past Medical History Cardiac Medical History: Reports: None Pulmonary Medical History: Reports: Hx Bronchitis, Hx Pneumonia EENT Medical History: Reports: None Neurological Medical History: Reports: Hx Migraine Endocrine Medical History: Reports: None Renal/ Medical History: Reports: None Malignancy Medical History: Reports: None GI Medical History: Reports: Hx Irritable Bowel Musculoskeletal Medical History: Reports None Skin Medical History: Reports None Psychiatric Medical History: Reports: Hx Anxiety, Hx Attention Deficit Hyperactivity Disorder, Hx Bipolar Disorder, Hx Depression Traumatic Medical History: Reports: None Infectious Medical History: Reports: None Past Surgical History: Reports: Hx Adenoidectomy, Hx Myringotomy, Hx Oral Surgery - [place] teeth, Hx Tonsillectomy - Immunizations Immunizations up to date: Yes Hx Diphtheria, Pertussis, Tetanus Vaccination: Yes Review of Systems - Review of Systems Constitutional: No symptoms reported EENT: Ear pain Cardiovascular: No symptoms reported Respiratory: No symptoms reported Gastrointestinal: No symptoms reported Genitourinary: No symptoms reported Female Genitourinary: No symptoms reported Musculoskeletal: No symptoms reported Skin: No symptoms reported Hematologic/Lymphatic: No symptoms reported Neurological/Psychological: No symptoms reported -: Yes All other systems reviewed and negative Physical Exam - Vital signs Vitals: Temp Pulse Resp BP Pulse Ox 97.5 F 105 H 12 111/78 99 05/10/19 16:07 05/10/19 16:07 05/10/19 16:07 05/10/19 16:07 05/10/19 16:07 Interpretation: Normal - General General appearance: Appears well, Alert - HEENT Head: Normocephalic, Atraumatic Eyes: Normal Pupils: PERRL Ears: Normal External canal: Erythema - Right, Swollen Sinus: Normal Nasal: Normal Mouth/Lips: Normal Mucous membranes: Normal Pharynx: Normal Neck: Normal - Respiratory Respiratory status: No respiratory distress Chest status: Nontender Breath sounds: Normal Chest palpation: Normal - Cardiovascular Rhythm: Regular Heart sounds: Normal auscultation Murmur: No - Abdominal Inspection: Normal Distension: No distension Bowel sounds: Normal Tenderness: Nontender Organomegaly: No organomegaly - Back Back: Normal, Nontender - Extremities General upper extremity: Normal inspection, Nontender, Normal color, Normal ROM, Normal temperature General lower extremity: Normal inspection, Nontender, Normal color, Normal ROM, Normal temperature, Normal weight bearing. No: Grace's sign - Neurological Neuro grossly intact: Yes Cognition: Normal Orientation: AAOx4 [place] Coma Scale Eye Opening: Spontaneous [place] Coma Scale Verbal: Oriented [place] Coma Scale Motor: Obeys Commands [place] Coma Scale Total: 15 Speech: Normal Motor strength normal: LUE, RUE, LLE, RLE Sensory: Normal - Psychological Associated symptoms: Normal affect, Normal mood - Skin Skin Temperature: Warm Skin Moisture: Dry Skin Color: Normal Course - Re-evaluation Re-evalutation: 05/10/19 16:40 Patient was treated with Ciprodex eardrops and viscous lidocaine for her pain for her otitis externa to the right ear. Patient was discharged home with prescription for the Ciprodex. Patient was instructed to follow-up with the ENT patient verbalized understanding and agreement treatment plan patient was discharged home. - Vital Signs Vital signs: Temp Pulse Resp BP Pulse Ox 97.7 F 92 20 124/80 98 05/10/19 17:12 05/10/19 17:12 05/10/19 17:12 05/10/19 17:12 05/10/19 17:12 Discharge - Discharge Clinical Impression: Otitis externa of right ear Qualifiers: Otitis externa type: unspecified type Chronicity: acute Qualified Code(s): H60.501 - Unspecified acute noninfective otitis externa, right ear Condition: Stable Disposition: HOME, SELF-CARE Additional Instructions: OTITIS EXTERNA: You have otitis externa -- an infection of the outer ear canal. This can be very painful. It's sometimes called "swimmer's ear," because it often occurs after prolonged water exposure. Many things, such as earwax and dirt in the ear, can contribute to it. The usual treatment is antibiotic/antiinflammatory ear drops. Occasionally, a wick will be placed in the ear to draw in the medicine. If the infection is severe, an oral antibiotic may be prescribed. Pain medication is often needed. Avoid getting water in the ear. Outer ear infections often take longer to heal than you might expect. Some tenderness and ache in the ear may persist for about two weeks. See your physician if you fail to improve as expected. Call the doctor at once if you develop fever, increasing swelling (particularly if it makes your ear "poke out"), severe headache, stiff neck, or decreased hearing. USE OF EAR DROPS: Your ear drops won't do much good if they don't get all the way in. To help the ear drops penetrate all the way to the ear drum, use the following technique. If you encounter problems of any kind, notify the physician. (1) Lay your head sideways on a pillow. (2) Place the dropper tip just barely inside the ear canal, almost touching the bottom side of the canal. The liquid is tolerated better on the bottom of the canal. (3) Squeeze out the appropriate amount of medicine, and remove the dropper. (4) Grab the back of the ear (just behind the ear canal) between your index finger and thumb. (5) Tug up, then let the ear drop back. Repeat several times. This pumps the medicine down. (6) Wait five minutes, then place a cotton ball in the ear canal to catch and hold the medicine. CIPROFLOXACIN: You have been given an antibacterial agent, ciprofloxacin (Cipro). This medicine is not related to the penicillins, sulfas, cephalosporins, or tetracyclines. It is often given to patients who are allergic to these drugs. It has been chosen for you either because other drugs are not appropriate, or because of the nature of your problem. Cipro should not be taken with antacids, as these can decrease its effectiveness. It can be taken without regard to meals. CIPRO SHOULD NOT BE TAKEN BY CHILDREN, NURSING WOMEN, OR WOMEN. Although Cipro is usually well-tolerated, common side effects can include nausea and diarrhea. Contact your doctor if you experience any unusual symptoms while on this medication, such as joint pain or swelling, shortness of breath, wheezing, faintness, or hives. USE OF ACETAMINOPHEN (Tylenol): Acetaminophen may be taken for pain relief or fever control. It's much safer than aspirin, offering a wider range of "safe" dosages. It is safe during . Some brand names are Tylenol, Panadol, Datril, Anacin 3, Tempra, and Liquiprin. Acetaminophen can be repeated every four hours. The following are maximum recommended dosages: WEIGHT Dose Drops Elixir Chewable(80mg) (LBS.) drprs=droppers tsp=teaspoon 6 40 mg 0.4 ml (1/2) 6-11 80 mg 0.8 ml (full) tsp 1 tab 12-16 120 mg 1 1/2 drprs 3/4 tsp 1 1/2 tabs 17-23 160 mg 2 drprs 1 tsp 2 tabs 24-30 240 mg 3 drprs 1 1/2 tsp 3 tabs 30-35 320 mg 2 tsp 4 tabs 36-41 360 mg 2 1/4 tsp 4 1/2 tabs 42-47 400 mg 2 1/2 tsp 5 tabs 48-53 480 mg 3 tsp 6 tabs 54-59 520 mg 3 1/4 tsp 6 1/2 tabs 60-64 560 mg 3 1/2 tsp 7 tabs 65-70 600 mg 3 3/4 tsp 7 1/2 tabs 71-76 640 mg 4 tsp 8 tabs 77-82 720 mg 4 1/2 tsp 9 tabs 83-88 800 mg 5 tsp 10 tabs >89 pounds or adults 650 mg to 900 mg Acetaminophen can be repeated every four hours. Maximum dose not to exceed 4000 mg a day. These maximum recommended dosages are slightly higher than the dosages written on the product container, but these dosages are very safe and below the toxic dosage for acetaminophen. FOLLOW-UP CARE: If you have been referred to a physician for follow-up care, call the physicians office for an appointment as you were instructed or within the next two days. If you experience worsening or a significant change in your symptoms, notify the physician immediately or return to the Emergency Department at any time for re-evaluation. Prescriptions: Ciprofloxacin HCl/Dexameth [Ciprodex Otic Suspension 7.5 ml Bottle] 4 drop LFT_EAR BID 7 Days #1 bottle Forms: Smoking Cessation Education Referrals: KRISTEN ELLIS DO [ASSOCIATE] - Follow up as needed
[2019-05-10] MEDS ORDERED: IBUPROFEN 600 MG TABLET PO ONE (17:08)
[2019-05-10 17:13] VITALS: BP 124/80
== END 2019-05-10 17:13 | disposition home or self-care (01) ==
LOC: ER 15:51
DX: H60.501 Unspecified acute noninfective otitis externa, right ear (principal); H92.01 Otalgia, right ear; F17.210 Nicotine dependence, cigarettes, uncomplicated; Z71.6 Tobacco abuse counseling
CPT/HCPCS: 99406; 99282; J3490 ×2